=== PATIENT | female | born 1930 | race Hispanic/Latino ===

== ENCOUNTER 2017-05-07 13:02 | Outpatient (CLI) | payer MEDICARE ==
--- NOTE | 2017-05-07 14:19 | Cat Scan Report ---
CT ABDOMEN AND PELVIS WITH CONTRAST: 05/07/17 13:02:00 CLINICAL: Nausea, vomiting and abdominal pain. COMPARISON: None. TECHNIQUE: Volumetric acquisition and 1.25 millimeter scan reconstructions after the uneventful intravenous injection of 100 cc Omnipaque 300. Consent was obtained prior to the administration of contrast. Oral contrast was also given. FINDINGS: Abdomen: Lung bases are clear.Normal liver size, contour and overall density. A benign 5 mm cyst in the medial segment of the left lobe of the liver. Focal fat of the medial segment of the left lobe at the intersegmental fissure. A 5 mm hypodensity of the right lobe of the liver image 26, series 1 is probably a benign cyst. Bile ducts are normal. A gallbladder is not identified. Normal stomach, duodenum, pancreas and spleen. Normal adrenal glands. A 1.4 cm hypodense mass in the anterior lower pole of the left kidney measures 88 Hounsfield units in density and demonstrates no washout on delayed scans. A 7 mm left upper pole hypodensity measures 30 Hounsfield units in density. The renal collecting systems and ureters are nondilated and the right kidney is normal. Calcification tortuosity of the abdominal aorta and iliac arteries. The small bowel is normal.Diverticulosis of the entire colon but greater involvement of the sigmoid colon. No signs of diverticulitis. No appendix identified. No mass, lymphadenopathy or ascites.No pneumoperitoneum. Pelvis: Extensive sigmoid diverticulosis but no signs of diverticulitis. The rectum is normal. Absence of the uterus and a normal vaginal cuff.Small right ovary with a 1.5 cm cyst. Small left ovary with a 1.7 cm cyst. No adnexal mass or free fluid. Bone windows demonstrate no suspicious bone lesion. 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 IMPRESSION:1. Extensive diverticulosis especially of the sigmoid colon but no signs of diverticulitis. 2. Status post cholecystectomy with normal bile ducts. 3. A 1.4 cm left lower pole renal mass is suspicious for renal cell carcinoma and a 7 mm left upper pole renal hypodensity which is either a cyst or solid mass. Consider MRI without and with contrast for a more definitive evaluation. 4. Status post appendectomy and hysterectomy. 5. Small bilateral benign ovarian cysts.
== END 2017-05-07 13:03 | disposition home or self-care (01) ==
LOC: SPVIMAG 13:02
DX: N83.201 Unspecified ovarian cyst, right side (principal); N83.202 Unspecified ovarian cyst, left side; K76.89 Other specified diseases of liver; K57.30 Diverticulosis of large intestine without perforation or abscess without bleeding; I70.0 Atherosclerosis of aorta; N28.89 Other specified disorders of kidney and ureter; M51.37 Other intervertebral disc degeneration, lumbosacral region; Z90.49 Acquired absence of other specified parts of digestive tract; Z90.89 Acquired absence of other organs; Z90.710 Acquired absence of both cervix and uterus
CPT/HCPCS: 74177; Q9967

== ENCOUNTER 2017-05-11 09:46 | Outpatient (CLI) | payer MEDICARE ==
--- NOTE | 2017-05-11 14:50 | Magnetic Resonance Report ---
MRI ABDOMEN WITHOUT AND WITH CONTRAST : 05/11/17 10:07:00 CLINICAL: Left renal mass COMPARISON :CT abdomen and pelvis 05/07/17 TECHNIQUE: Axial T1 in phase and opposed phase, coronal and axial T2 and axial T2 fat sat sequences plus multiphase postcontrast T1 fat sat sequences on a 1.5 Mary magnet. 15.0 cc of Multihance was injected intravenously for the contrast portion of the exam and consent was obtained prior to the administration of the contrast. FINDINGS: Several small left renal cysts. A 1.2 x 0.9 cm left lower pole cyst correlates with the mass identified on CT. It demonstrates mild T1 hyperintensity precontrast and no enhancement post contrast which is consistent with a hemorrhagic cyst. No enhancing mass. The renal collecting systems and ureters are nondilated. The liver is normal size with normal overall signal. No liver mass. A medial segment left lobe hepatic cyst measures 6 mm and correlates with a left hepatic cyst identified on the CT. No other hepatic cyst is identified. The gallbladder is absent and bile ducts are normal. Normal stomach, duodenum, pancreas and spleen. Normal adrenal glands. No ascites. Imaged portions of small bowel and colon are normal. Normal aorta and inferior vena cava. IMPRESSION: 1. Benign left renal cysts and no suspicious mass of the left kidney. 2. Normal right kidney. 3. Benign 6 mm left hepatic cyst. 4. Status post cholecystectomy.
== END 2017-05-11 09:47 | disposition home or self-care (01) ==
LOC: MRI 09:46
DX: C64.9 Malignant neoplasm of unspecified kidney, except renal pelvis (principal); N28.1 Cyst of kidney, acquired; K76.89 Other specified diseases of liver; Z90.49 Acquired absence of other specified parts of digestive tract; R06.2 Wheezing
CPT/HCPCS: 74183; A9577